=== PATIENT | female | born 1990 | race African-American/Black ===

== ENCOUNTER 2020-02-07 07:30 | Inpatient (IN) | payer OTHER ==
[2020-02-16 12:43] VITALS: BMI 28.6
[2020-02-21] MEDS ORDERED: DEXAMETHASONE SOD PHOSPHATE 4 MG/1 ML VIAL ONE (07:12)
[2020-02-21] MEDS ORDERED: LIDOCAINE HCL/PF 2% SDV 5ML VIAL ONE (07:12)
[2020-02-21] MEDS ORDERED: PROPOFOL 20 ML ONE (07:13)
[2020-02-21] MEDS ORDERED: SUCCINYLCHOLINE CHLORIDE 200 MG/10 ML SYRINGE ONE (07:13)
[2020-02-21] MEDS ORDERED: MIDAZOLAM HCL 2 MG/2 ML SINGLE DOSE VIAL ONE ×3 (07:13→07:43)
[2020-02-21] MEDS ORDERED: VASOPRESSIN 20 UNITS/ML VIAL IV ONE (07:32)
[2020-02-21] MEDS ORDERED: ROCURONIUM BROMIDE 50 MG/5 ML SYRINGE ONE (08:23)
[2020-02-21] MEDS ORDERED: ceFAZolin SODIUM 1 GM VIAL ONE (08:32)
[2020-02-21] MEDS ORDERED: ceFAZolin 2 GRAM PREMIX BAG IVPB ONE (08:32)
[2020-02-21] MEDS ORDERED: SODIUM CHLORIDE 0.9% P/F 10 ML VIAL IJ ONE (08:39)
[2020-02-21] MEDS ORDERED: DESFLURANE GAS 240 ML BOTTLE IH ONE (10:52)
[2020-02-21] MEDS ORDERED: GLYCOPYRROLATE 0.2 MG/1 ML VIAL ONE (11:15)
[2020-02-21] MEDS ORDERED: NEOSTIGMINE METHYLSULFATE 0.5 MG/ML - 10 ML MDV ONE (11:15)
[2020-02-21] MEDS ORDERED: diphenhydrAMINE HCL 25 MG CAPSULE (FP) PO PRN (11:57)
[2020-02-21] MEDS ORDERED: ONDANSETRON 4 MG/2 ML VIAL IVPB PRN (11:57)
[2020-02-21] MEDS ORDERED: oxyCODONE HCL 5 MG TABLET PO PRN (12:09)
[2020-02-21] MEDS ORDERED: ACETAMINOPHEN 1000 MG/100 ML BAG IVPB ONE ×2 (12:09→12:30)
[2020-02-21] MEDS ORDERED: ACETAMINOPHEN INJECTION 100 ML IVPB ONE (12:28)
[2020-02-21] MEDS ORDERED: HYDROmorphone HCl 2 MG/ML VIAL ONE (13:23)
[2020-02-21] MEDS ORDERED: HYDROmorphone HCl 2 MG/ML VIAL IVPUSH ONE ×2 (13:25→15:42)
[2020-02-21] MEDS: ACETAMINOPHEN 325 MG TABLET (FP) PO SCH ×2 (14:37→18:02)
[2020-02-21] MEDS: traMADol HCL 50 MG TABLET PO PRN (16:53)
[2020-02-21] MEDS: LACTATED RINGERS SOLUTION 1,000 ML IV SCH (18:00)
[2020-02-21] MEDS: ceFAZolin 2 GRAM PREMIX BAG IVPB SCH (18:02)
[2020-02-22] MEDS: ACETAMINOPHEN 325 MG TABLET (FP) PO SCH ×4 (00:15→18:16)
[2020-02-22] MEDS: LACTATED RINGERS SOLUTION 1,000 ML IV SCH ×2 (01:54→16:59)
[2020-02-22] MEDS: ceFAZolin 2 GRAM PREMIX BAG IVPB SCH ×2 (01:54→09:46)
[2020-02-22] MEDS: traMADol HCL 50 MG TABLET PO PRN (02:11)
[2020-02-22 09:29] LABS: HEMATOCRIT 18.9 % (32.4-45.2); MCH 25.7 pg (25.7-33.7); MCHC 32.3 g/dl (32.0-36.0); MEAN CELL VOLUME 79.5 fl (80-96); MEAN PLT VOLUME 7.7 fl (7.5-11.1); PLATELET COUNT 190 K/MM3 (134-434); RBC 2.38 M/mm3 (3.60-5.2); RDW 22.7 % (11.6-15.6); WHITE BLOOD COUNT 7.7 K/mm3 (4.0-10.0)
[2020-02-22 09:34] LABS: HEMOGLOBIN 6.1 GM/dL (10.7-15.3)
[2020-02-22 09:58] LABS: CALCIUM 7.7 mg/dL (8.5-10.1)
[2020-02-22 09:59] LABS: BLOOD UREA NITROGEN 6.7 mg/dL (7-18); CREATININE 0.6 mg/dL (0.55-1.3)
[2020-02-22] MEDS ORDERED: IRON SUCROSE INJECTION 300 MG in SODIUM CHLORIDE 235 ML IVPB ONE (10:00)
[2020-02-22 11:48] LABS: BASO % 0.1 % (0-2.0); EOS % 0.2 % (0-4.5); HEMATOCRIT 19.1 % (32.4-45.2); LYMPH % 17.1 % (8-40); MCH 26.2 pg (25.7-33.7); MCHC 32.7 g/dl (32.0-36.0); MEAN CELL VOLUME 80.2 fl (80-96); MEAN PLT VOLUME 7.5 fl (7.5-11.1); MONO % 9.1 % (3.8-10.2); NEUT % 73.5 % (42.8-82.8); PLATELET COUNT 185 K/MM3 (134-434); RBC 2.38 M/mm3 (3.60-5.2); WHITE BLOOD COUNT 7.2 K/mm3 (4.0-10.0)
[2020-02-22 11:51] LABS: HEMOGLOBIN 6.2 GM/dL (10.7-15.3)
[2020-02-22 13:46] LABS: ANISOCYTOSIS 1+; MACROCYTOSIS 0; PLATELET ESTIMATE NORMAL
[2020-02-22] MEDS: oxyCODONE HCL 5 MG TABLET PO PRN (19:52)
[2020-02-23] MEDS: ACETAMINOPHEN 325 MG TABLET (FP) PO SCH ×4 (00:15→18:14)
[2020-02-23] MEDS: oxyCODONE HCL 5 MG TABLET PO PRN ×5 (01:37→21:06)
[2020-02-23 08:52] LABS: EPI CELLS 29 /uL (0-25.1); HYALINE CASTS 1 /uL (0-3.1); PH,URINE 7.5 (5.0-8.0); URINE APPEARANCE CLEAR; URINE BACTERIA 583 /uL (0-1359); URINE BILIRUBIN NEGATIVE (NEGATIVE); URINE COLOR YELLOW; URINE GLUCOSE (UA) NEGATIVE (NEGATIVE); URINE KETONE NEGATIVE (NEGATIVE); URINE LEUK ESTERASE NEGATIVE (NEGATIVE); URINE NITRITE NEGATIVE (NEGATIVE); URINE PROTEIN NEGATIVE (NEGATIVE); URINE RBC 8 /uL (0-23.9); URINE UROBILINOGEN 0.2 mg/dL (0.2-1.0); URINE WBC 12 /uL (0-25.8)
[2020-02-23 09:39] LABS: BASO % 0.5 % (0-2.0); EOS % 2.6 % (0-4.5); LYMPH % 22.3 % (8-40); MCH 26.5 pg (25.7-33.7); MCHC 33.3 g/dl (32.0-36.0); MEAN CELL VOLUME 79.5 fl (80-96); MEAN PLT VOLUME 7.5 fl (7.5-11.1); MONO % 6.2 % (3.8-10.2); NEUT % 68.4 % (42.8-82.8); PLATELET COUNT 175 K/MM3 (134-434); RBC 2.26 M/mm3 (3.60-5.2); RDW 22.6 % (11.6-15.6); WHITE BLOOD COUNT 7.7 K/mm3 (4.0-10.0)
[2020-02-23] MEDS: FERROUS SO4 325 MG TABLET (FP) PO SCH ×2 (11:12→21:06)
[2020-02-24] MEDS: ACETAMINOPHEN 325 MG TABLET (FP) PO SCH ×2 (00:20→06:35)
[2020-02-24] MEDS: oxyCODONE HCL 5 MG TABLET PO PRN (04:02)
[2020-02-24 08:35] LABS: BASO % 0.6 % (0-2.0); EOS % 5.9 % (0-4.5); HEMATOCRIT 20.2 % (32.4-45.2); LYMPH % 37.5 % (8-40); MCH 26.3 pg (25.7-33.7); MCHC 32.5 g/dl (32.0-36.0); MEAN CELL VOLUME 80.9 fl (80-96); MEAN PLT VOLUME 7.3 fl (7.5-11.1); MONO % 6.5 % (3.8-10.2); NEUT % 49.5 % (42.8-82.8); PLATELET COUNT 208 K/MM3 (134-434); RBC 2.49 M/mm3 (3.60-5.2); RDW 22.7 % (11.6-15.6); WHITE BLOOD COUNT 6.2 K/mm3 (4.0-10.0)
[2020-02-24 09:03] LABS: HEMOGLOBIN 6.6 GM/dL (10.7-15.3)
[2020-02-24 11:32] VITALS: BP 100/67; PULSE 87; TEMP 97.8
[2020-02-24] MEDS: FERROUS SO4 325 MG TABLET (FP) PO SCH (12:32)
== END 2020-02-24 14:38 | disposition home or self-care (01) | DRG 519 ==
LOC: J2C 02-21 04:18 → J3W 02-21 14:27
PROVIDERS: ADMIT Obstetrics & Gynecology Maternal & Fetal Medicine; ATTEND Obstetrics & Gynecology Maternal & Fetal Medicine
PROC: 0UB90ZZ Excision of Uterus, Open Approach (ICD-10-PCS; principal; 2020-02-21 08:00)
DX: D25.1 Intramural leiomyoma of uterus (principal); D25.2 Subserosal leiomyoma of uterus; D25.0 Submucous leiomyoma of uterus; D64.89 Other specified anemias
CPT/HCPCS: 36415; 80048; 81003; 84703; 85025; 85027; 86850; 86900; 86901; 86922; 87086; 94760; J0131; J1756

== ENCOUNTER 2022-05-22 15:11 | Day surgery (SDC) | payer OTHER ==
[2022-05-22 16:10] VITALS: BMI 31.8
[2022-05-22] MEDS ORDERED: DEXTROSE 5%-LACTATED RINGERS 1,000 ML IV SCH (16:15)
[2022-05-22 16:56] LABS: BASO % 0.6 % (0-2.0); EOS % 4.5 % (0-4.5); HEMATOCRIT 33.1 % (32.4-45.2); HEMOGLOBIN 11.2 GM/dL (10.7-15.3); MCHC 33.8 g/dl (32.0-36.0); MEAN CELL VOLUME 91.8 fl (80-96); MEAN PLT VOLUME 7.6 fl (7.5-11.1); NEUT % 70.9 % (42.8-82.8); PLATELET COUNT 234 10^3/uL (134-434); RDW 15.1 % (11.6-15.6); WHITE BLOOD COUNT 8.4 K/mm3 (4.0-10.0)
[2022-05-22 17:03] LABS: INR 0.93 (0.83-1.09); PROTHROMBIN TIME (PATIENT) 10.8 SEC (9.7-13.0)
[2022-05-22 17:06] LABS: ACTIVATED PTT 26.2 SECONDS (25.2-36.5)
[2022-05-22 17:13] LABS: CALCIUM 8.8 mg/dL (8.5-10.1)
[2022-05-22 17:14] LABS: BLOOD UREA NITROGEN 5.5 mg/dL (7-18)
[2022-05-22 17:17] LABS: CREATININE 0.5 mg/dL (0.55-1.3)
[2022-05-22] MEDS ORDERED: ceFAZolin SODIUM 1 GM VIAL ONE (19:27)
[2022-05-22] MEDS ORDERED: INDOMETHACIN 50 MG CAPSULE PO ONE (20:31)
[2022-05-22] MEDS ORDERED: ONDANSETRON 4 MG/2 ML VIAL IVPUSH PRN (20:33)
[2022-05-22] MEDS ORDERED: LACTATED RINGERS SOLUTION 1,000 ML IV SCH (20:45)
[2022-05-22] MEDS: INDOMETHACIN 25 MG CAPSULE PO SCH (21:23)
[2022-05-23] MEDS: INDOMETHACIN 25 MG CAPSULE PO SCH ×2 (03:43→09:16)
[2022-05-23 13:19] VITALS: BP 133/71; PULSE 96; RESP 17; TEMP 97.7
== END 2022-05-23 13:50 | disposition home or self-care (01) ==
LOC: JASU-SURG 15:11 → UNDOADMIN 15:20 → JLDR 15:20 → J3W 05-23 01:15 → JASUSAT 05-23 13:50
PROVIDERS: ATTEND Obstetrics & Gynecology Maternal & Fetal Medicine
PROC: 0UVC7ZZ Restriction of Cervix, Via Natural or Artificial Opening (ICD-10-PCS; principal; 2022-05-22 19:30)
DX: O26.872 Cervical shortening, second trimester (principal); O30.042 Twin pregnancy, dichorionic/diamniotic, second trimester; Z3A.21 21 weeks gestation of pregnancy
CPT/HCPCS: 36415; 80048; 85025; 85610; 85730; 86780; 86850; 86900; 86901; 94760; C9803-CS; U0003; U0005

== ENCOUNTER 2022-07-07 20:40 | Observation (INO) | payer OTHER ==
[2022-07-07] MEDS ORDERED: SODIUM CHLORIDE 500 ML IV STA (22:07)
[2022-07-07] MEDS ORDERED: BETAMET ACET/BETAMET NA PH 30 MG/5 ML VIAL ONE (22:32)
[2022-07-07] MEDS: BETAMET ACET/BETAMET NA PH 30 MG/5 ML VIAL IM SCH (22:35)
[2022-07-07 22:37] LABS: BASO % 0.7 % (0-2.0); EOS % 4.7 % (0-4.5); HEMATOCRIT 36.3 % (32.4-45.2); HEMOGLOBIN 12.4 GM/dL (10.7-15.3); LYMPH % 18.2 % (8-40); MCH 31.4 pg (25.7-33.7); MCHC 34.1 g/dl (32.0-36.0); MEAN CELL VOLUME 92.2 fl (80-96); MEAN PLT VOLUME 7.3 fl (7.5-11.1); MONO % 6.4 % (3.8-10.2); PLATELET COUNT 248 10^3/uL (134-434); RBC 3.94 M/mm3 (3.60-5.2); RDW 14.1 % (11.6-15.6); WHITE BLOOD COUNT 8.5 K/mm3 (4.0-10.0)
[2022-07-07] MEDS ORDERED: MAGNESIUM 4GM/H20 - 4 GM/100 ML IVPB IVPB SCH (22:45)
[2022-07-07 22:46] LABS: INR 0.9 (0.83-1.09); PROTHROMBIN TIME (PATIENT) 10.4 SEC (9.7-13.0)
[2022-07-07 22:58] LABS: CALCIUM 9.4 mg/dL (8.5-10.1)
[2022-07-07 22:59] LABS: ALBUMIN 2.9 g/dl (3.4-5.0)
[2022-07-07 23:02] LABS: CREATININE 0.6 mg/dL (0.55-1.3)
[2022-07-07 23:05] LABS: BILIRUBIN,TOTAL 0.5 mg/dL (0.2-1)
[2022-07-07] MEDS: DEXTROSE 5%-LACTATED RINGERS 1,000 ML IV SCH (23:25)
[2022-07-07] MEDS ORDERED: MAGNESIUM SULFATE 20GM/500ML - 20 GM/500 ML INFUS.BAG ONE (23:53)
[2022-07-07] MEDS: MAGNESIUM SULFATE 20GM/500ML - 20 GM/500 ML INFUS.BAG IVPB SCH (23:55)
[2022-07-08 00:02] VITALS: BMI 32.9
[2022-07-08 00:08] LABS: EPI CELLS 12 /uL (0-25.1); HYALINE CASTS 0 /uL (0-3.1); PH,URINE 6.5 (5.0-8.0); URINE APPEARANCE CLEAR; URINE BACTERIA 96 /uL (0-1359); URINE BILIRUBIN NEGATIVE (NEGATIVE); URINE COLOR YELLOW; URINE GLUCOSE (UA) NEGATIVE (NEGATIVE); URINE KETONE TRACE (NEGATIVE); URINE LEUK ESTERASE TRACE (NEGATIVE); URINE NITRITE NEGATIVE (NEGATIVE); URINE PROTEIN NEGATIVE (NEGATIVE); URINE RBC 8 /uL (0-23.9); URINE UROBILINOGEN 0.2 mg/dL (0.2-1.0); URINE WBC 7 /uL (0-25.8)
[2022-07-08] MEDS: MAGNESIUM SULFATE 20GM/500ML - 20 GM/500 ML INFUS.BAG IVPB SCH (09:00)
[2022-07-08] MEDS ORDERED: MAGNESIUM SULFATE 20GM/500ML - 20 GM/500 ML INFUS.BAG ONE ×2 (09:02→19:19)
[2022-07-08] MEDS: DEXTROSE 5%-LACTATED RINGERS 1,000 ML IV SCH (12:00)
[2022-07-08] MEDS: NIFEdipine 10 MG CAPSULE (FP) PO SCH (22:00)
[2022-07-08] MEDS ORDERED: NIFEdipine 10 MG CAPSULE (FP) ONE (22:01)
[2022-07-08] MEDS: BETAMET ACET/BETAMET NA PH 30 MG/5 ML VIAL IM SCH (22:35)
[2022-07-09] MEDS: DEXTROSE 5%-LACTATED RINGERS 1,000 ML IV SCH (01:52)
[2022-07-09] MEDS: NIFEdipine 10 MG CAPSULE (FP) PO SCH ×2 (04:11→10:50)
[2022-07-09 14:10] VITALS: BP 138/72; PULSE 90; RESP 17; TEMP 98.2
== END 2022-07-09 13:30 | disposition home or self-care (01) ==
LOC: JDEL 20:40 → JLDR 21:45 → UNDOADMOB 21:45 → OBSVTOIN 07-08 06:00 → INTOOBSV 07-08 06:00 → JLDR 07-08 23:19 → J3W 07-08 23:19
PROVIDERS: ADMIT Obstetrics & Gynecology Maternal & Fetal Medicine; ATTEND Obstetrics & Gynecology Maternal & Fetal Medicine
PROC: 3E0233Z Introduction of Anti-inflammatory into Muscle, Percutaneous Approach (ICD-10-PCS; principal; 2022-07-09)
PROC: 3E033GC Introduction of Other Therapeutic Substance into Peripheral Vein, Percutaneous Approach (ICD-10-PCS; 2022-07-09)
PROC: 3E0337Z Introduction of Electrolytic and Water Balance Substance into Peripheral Vein, Percutaneous Approach (ICD-10-PCS; 2022-07-09)
DX: O30.043 Twin pregnancy, dichorionic/diamniotic, third trimester (principal); O34.30 Maternal care for cervical incompetence, unspecified trimester; Z3A.28 28 weeks gestation of pregnancy
CPT/HCPCS: 36415; 80053; 81003; 85025; 85610; 85730; 86780; 86850; 86900; 86901; 87086; 96361; 96365; 96366; 96372; C9803-CS; G0378; U0003; U0005

== ENCOUNTER 2022-09-04 06:00 | Inpatient (IN) | payer OTHER ==
[~2022-09-04 06:00] MED LIST: CITRIC ACID/SODIUM CITRATE 30 ML UNIT-DOSE CUP PO ONE; ELECTROLYTE-148 SOLN 500 ML IV SCH
[2022-09-04] MEDS ORDERED: ELECTROLYTE-148 SOLN 500 ML IV SCH (06:30)
[2022-09-04 06:39] VITALS: BMI 36.2
[2022-09-04] MEDS ORDERED: DEXTROSE 5%-LACTATED RINGERS 1,000 ML IV SCH (08:15)
[2022-09-04] MEDS ORDERED: ACETAMINOPHEN 325 MG TABLET (FP) PO PRN (08:18)
[2022-09-04] MEDS ORDERED: ONDANSETRON 4 MG/2 ML VIAL IVPUSH PRN (08:18)
[2022-09-04] MEDS ORDERED: morphine SULFATE/PF 1 MG/2 ML (2cc Syringe - QUVA) ONE (08:25)
[2022-09-04] MEDS ORDERED: PHENYLEPHRINE HCL 10 MG/1 ML SINGLE DOSE VIAL ONE (08:25)
[2022-09-04] MEDS ORDERED: EPINEPHrine/PF 1 MG/1 ML (1:1,000) AMPULE ONE (08:25)
[2022-09-04] MEDS ORDERED: FENTANYL CITRATE/PF 50 MCG/ML VIAL ONE (09:02)
[2022-09-04] MEDS ORDERED: MIDAZOLAM HCL 2 MG/2 ML SINGLE DOSE VIAL ONE ×2 (09:14→09:38)
[2022-09-04 09:57] LABS: CORD BASE EXCESS -5.8 mmol/L (0-2); CORD HCO3 21.1 mmHg (20-29); CORD PCO2 46.1 mmHg (30-78); CORD pH 7.279 (7.14-7.44)
[2022-09-04 10:00] LABS: CORD HCO3 19.5 mmHg (20-29); CORD PCO2 55.1 mmHg (30-78); CORD pH 7.167 (7.14-7.44)
[2022-09-04 10:07] LABS: CORD BASE EXCESS -6.2 mmol/L (0-2); CORD HCO3 20.1 mmHg (20-29); CORD PCO2 42.3 mmHg (30-78); CORD pH 7.294 (7.14-7.44)
[2022-09-04] MEDS ORDERED: OXYTOCIN 10 UNITS/ML VIAL ONE ×2 (10:27)
[2022-09-04] MEDS ORDERED: ceFAZolin SODIUM 1 GM VIAL ONE ×2 (10:28)
[2022-09-04] MEDS: OXYTOCIN 20 UNITS in 0.9% NS 20 UNIT/1,000 ML INFUS.BAG IV SCH ×2 (10:40→18:25)
[2022-09-04] MEDS ORDERED: OXYTOCIN 20 UNITS in 0.9% NS 20 UNIT/1,000 ML INFUS.BAG IV ONE (10:50)
[2022-09-04] MEDS ORDERED: ACETAMINOPHEN INJECTION 100 ML IVPB ONE (10:50)
[2022-09-04] MEDS ORDERED: ACETAMINOPHEN 1000 MG/100 ML BAG IVPB ONE (10:55)
[2022-09-04 12:33] LABS: HIV INTERPRETATION NEGATIVE (NEGATIVE)
[2022-09-04] MEDS: FERROUS SO4 325 MG TABLET (FP) PO SCH (22:14)
[2022-09-05] MEDS: oxyCODONE HCL 5 MG TABLET PO PRN ×3 (00:45→16:44)
[2022-09-05] MEDS: SIMETHICONE 80 MG TAB.CHEW (FP) PO PRN ×4 (00:45→20:19)
[2022-09-05 08:57] LABS: BASO % 0.3 % (0-2.0); EOS % 1.1 % (0-4.5); HEMATOCRIT 29.3 % (32.4-45.2); HEMOGLOBIN 10.1 GM/dL (10.7-15.3); LYMPH % 8.8 % (8-40); MCH 31.9 pg (25.7-33.7); MCHC 34.6 g/dl (32.0-36.0); MEAN CELL VOLUME 92.2 fl (80-96); MEAN PLT VOLUME 7.7 fl (7.5-11.1); MONO % 4.4 % (3.8-10.2); NEUT % 85.4 % (42.8-82.8); PLATELET COUNT 191 10^3/uL (134-434); RBC 3.18 M/mm3 (3.60-5.2); RDW 14.1 % (11.6-15.6); WHITE BLOOD COUNT 10.4 K/mm3 (4.0-10.0)
[2022-09-05] MEDS: IBUPROFEN 600 MG TABLET (FP) PO PRN ×2 (09:45→20:19)
[2022-09-05] MEDS: PRENATAL VITAMINS W/ FOLIC ACID TABLET (FP) PO SCH (09:45)
[2022-09-05] MEDS: FERROUS SO4 325 MG TABLET (FP) PO SCH ×2 (09:45→21:54)
[2022-09-05] MEDS: OXYTOCIN 20 UNITS in 0.9% NS 20 UNIT/1,000 ML INFUS.BAG IV SCH (15:58)
[2022-09-05] MEDS ORDERED: PENICILLIN G POTASSIUM 20,000,000 (20Mm) UNITS VIAL IVPB SCH (23:30)
[2022-09-06] MEDS: oxyCODONE HCL 5 MG TABLET PO PRN ×3 (00:54→21:39)
[2022-09-06] MEDS: SIMETHICONE 80 MG TAB.CHEW (FP) PO PRN ×4 (00:54→20:12)
[2022-09-06] MEDS: IBUPROFEN 600 MG TABLET (FP) PO PRN ×3 (04:47→20:12)
[2022-09-06] MEDS: FERROUS SO4 325 MG TABLET (FP) PO SCH ×2 (09:13→21:10)
[2022-09-06] MEDS: PRENATAL VITAMINS W/ FOLIC ACID TABLET (FP) PO SCH (09:13)
[2022-09-07] MEDS: IBUPROFEN 600 MG TABLET (FP) PO PRN ×4 (02:15→19:58)
[2022-09-07] MEDS: SIMETHICONE 80 MG TAB.CHEW (FP) PO PRN ×3 (02:15→19:58)
[2022-09-07] MEDS: FERROUS SO4 325 MG TABLET (FP) PO SCH ×2 (09:43→21:35)
[2022-09-07] MEDS: PRENATAL VITAMINS W/ FOLIC ACID TABLET (FP) PO SCH (09:43)
[2022-09-07 10:06] LABS: BASO % 0.3 % (0-2.0); EOS % 2.5 % (0-4.5); HEMATOCRIT 27.2 % (32.4-45.2); HEMOGLOBIN 9.3 GM/dL (10.7-15.3); LYMPH % 11.1 % (8-40); MCH 31.7 pg (25.7-33.7); MCHC 34.2 g/dl (32.0-36.0); MEAN CELL VOLUME 92.7 fl (80-96); MEAN PLT VOLUME 6.8 fl (7.5-11.1); MONO % 4.5 % (3.8-10.2); NEUT % 81.6 % (42.8-82.8); PLATELET COUNT 237 10^3/uL (134-434); RBC 2.94 M/mm3 (3.60-5.2); RDW 13.9 % (11.6-15.6); WHITE BLOOD COUNT 10.2 K/mm3 (4.0-10.0)
[2022-09-08] MEDS: IBUPROFEN 600 MG TABLET (FP) PO PRN ×3 (00:41→13:25)
[2022-09-08] MEDS: SIMETHICONE 80 MG TAB.CHEW (FP) PO PRN ×3 (00:41→13:25)
[2022-09-08 07:54] VITALS: BP 131/83; PULSE 90; RESP 16; TEMP 98
[2022-09-08] MEDS: PRENATAL VITAMINS W/ FOLIC ACID TABLET (FP) PO SCH (10:26)
[2022-09-08] MEDS: FERROUS SO4 325 MG TABLET (FP) PO SCH (10:26)
== END 2022-09-08 16:59 | disposition home or self-care (01) | DRG 540 ==
LOC: JLDR 06:00 → J3W 13:26
PROVIDERS: ADMIT Obstetrics & Gynecology Maternal & Fetal Medicine; ATTEND Obstetrics & Gynecology Maternal & Fetal Medicine
PROC: 0UCC0ZZ Extirpation of Matter from Cervix, Open Approach (ICD-10-PCS; principal; 2022-09-04)
PROC: 10D00Z1 Extraction of Products of Conception, Low, Open Approach (ICD-10-PCS; 2022-09-04)
DX: O30.043 Twin pregnancy, dichorionic/diamniotic, third trimester (principal); O13.4 Gestational [pregnancy-induced] hypertension without significant proteinuria, complicating childbirth; O36.5932 Maternal care for other known or suspected poor fetal growth, third trimester, fetus 2; O32.8XX2 Maternal care for other malpresentation of fetus, fetus 2; Z3A.36 36 weeks gestation of pregnancy; Z37.2 Twins, both liveborn
CPT/HCPCS: 36415; 36600; 80053; 82803; 85025; 85610; 86780; 86850; 86900; 86901; 87389; 88307-TC